=== PATIENT | female | born 1955 | race Caucasian/White ===

== ENCOUNTER 2019-10-23 08:10 | Emergency (ER) | payer MEDICARE ==
[2019-10-23 09:03] LABS: Bacteria/HPF None Seen HPF (None Seen); Bilirubin Negative (Negative); Blood, Urine Trace (Negative); Clarity Clear (Clear); Glucose, Urine (Dipstick) Normal (Negative); Leukocyte 25 Leu/uL (Negative); Nitrite Negative (Negative); Protein, Urine (Dipstick) 30 mg/dL (Neg-Trace); Squamous Epithelial 0-3 HPF (0-3); Urobilinogen Normal mg/dL (Less than 2)
== END 2019-10-23 10:29 | disposition home or self-care (01) ==
LOC: ERS 08:10
DX: R30.0 Dysuria (principal); Z86.73 Personal history of transient ischemic attack (TIA), and cerebral infarction without residual deficits; E11.9 Type 2 diabetes mellitus without complications; I10 Essential (primary) hypertension
CPT/HCPCS: 51701; 81003; 81015; 87086; A4353

== ENCOUNTER 2019-12-23 13:27 | Emergency (ER) | payer MEDICARE | END 2019-12-23 15:30 | disposition home or self-care (01) | LOC: ERS 13:27 | DX: G89.29 Other chronic pain (principal); M25.561 Pain in right knee; I10 Essential (primary) hypertension; E11.9 Type 2 diabetes mellitus without complications; Z86.73 Personal history of transient ischemic attack (TIA), and cerebral infarction without residual deficits | CPT/HCPCS: 99281 ==